=== PATIENT | male | born 1955 | race African-American/Black ===

== ENCOUNTER → 2018-10-27 | Day surgery (SDC) | payer MEDICARE, MEDICAID ==
[~2018-10-27] VITALS: Ht 185.4 cm; Wt 87.1 kg
[~2018-10-27] MED LIST: ACETAMINOPHEN 325MG TABLET PO PRN; AMLO10TA4 MT; ASPI-1159 MT; ATOR80TA MT; ATROPINE SULFATE 1MG/10ML SYR IV PRN; CLOP75TA16 MT; FENTANYL CITRATE/PF 50MCG/ML 2ML VIAL ONE; HEPARIN SODIUM 1,000 UNIT/1ML VIAL IV ONE; IODIXANOL 320MG/ML 100 ML BOTTLE IV ONE; IOHEXOL-300 100 ML BOTTLE ONE; LIDOCAINE HCL 1% 20ML VIAL (Pyxis) INJ ONE; MIDAZOLAM HCL 2 MG/2 ML VIAL ONE; NICARDIPINE 100MCG/ML 10ML VIAL (CATH LAB) IV ONE; NITROGLYCERIN 50MCG/ML 10ML VIAL (CATH LAB) IV ONE; ONDANSETRON HCL 4MG/2ML INJ IV PRN; ZET10 MT
== END | disposition home or self-care (01) ==
LOC: CCL 08:41
PROVIDERS: ATTEND Specialist
DX: I25.10 Atherosclerotic heart disease of native coronary artery without angina pectoris (principal)
CPT/HCPCS: 85347; 93458; 93567; 99152; 99153; C1769; C1887; C1893; J1644; J2250; J3010; J3490; Q9967; G0500